=== PATIENT | female | born 1980 | race Caucasian/White ===

== ENCOUNTER 2021-11-03 00:02 | Emergency (ER) | payer BC ==
[~2021-11-03 00:02] MED LIST: CHANTIX1 MG PO; CYANOCOBAL1000 MCG/1 INJ; FOLIC ACID 1 MG1 MG PO; HYDROXYZINE PAM50 MG PO; KEFLEX CAP 500500 MG PO; LIBRIUM CAP 2525 MG PO; LOPRESSOR 25 MG25 MG PO; NAPROSYN500 MG PO; NORCO 5-325 TA1 EACH PO; PROTONIX40 MG PO; TAB-A-VITE1 EACH PO; VITAMIN B-1 5050 MG PO; VITAMIN D250000 UNIT PO; WELLBUTRIN XL150 M1 PO; ZANTAC150 MG PO
[2021-11-03 01:41] LABS: HEMOGLOBIN 16.4 gm/dl (12.3-15.3); RED BLOOD COUNT 5.51 M/UL (4.00-5.10)
[2021-11-03 01:53] LABS: WHITE BLOOD COUNT 33.9 K/UL (4.5-11.0)
[2021-11-03 02:06] LABS: BUN/CREATININE RATIO 11 (0-10)
== END 2021-11-03 01:58 | disposition expired ==
LOC: ER1 00:02
PROVIDERS: Family Medicine
DX: G40.901 Epilepsy, unspecified, not intractable, with status epilepticus (principal); I46.9 Cardiac arrest, cause unspecified; A41.9 Sepsis, unspecified organism; E87.2 Acidosis; J18.9 Pneumonia, unspecified organism; I47.2 Ventricular tachycardia; I44.4 Left anterior fascicular block; Z86.59 Personal history of other mental and behavioral disorders; Z20.822 Contact with and (suspected) exposure to COVID-19
CPT/HCPCS: 36600; 71045; 80053; 80307; 82009; 82140; 82550; 82553; 82803; 83605; 83690; 83735; 83880; 84484; 84703; 85025; 92950; 94002; 99285; G0480; J0171; J0282; J0461; J1265; J2060; J2250; U0002